=== PATIENT | female | born 1995 | race Caucasian/White ===

== ENCOUNTER 2017-03-01 15:19 | Observation (INO) ==
[2017-03-01] MEDS ORDERED: D5 LR 1,000 ML IV ONE (17:00)
[2017-03-01] MEDS: CLINDAMYCIN 900 MG/NS 900 MG/50 ML IVPB IV SCH (17:14)
[2017-03-01] MEDS ORDERED: ZOFRAN PO PRN (19:31)
[2017-03-01] MEDS: ZOFRAN IV PRN (20:41)
[2017-03-01] MEDS: FERROUS SULFATE PO SCH (22:17)
[2017-03-01] MEDS: D5 LR 1,000 ML IV SCH ×2 (22:18→23:30)
[2017-03-02] MEDS: CLINDAMYCIN 900 MG/NS 900 MG/50 ML IVPB IV SCH ×3 (01:20→16:58)
[2017-03-02] MEDS: D5 LR 1,000 ML IV SCH ×3 (05:42→22:36)
[2017-03-02] MEDS ORDERED: ZOFRAN ODT PO PRN (08:12)
[2017-03-02] MEDS: FERROUS SULFATE PO SCH ×2 (09:03→20:26)
[2017-03-02] MEDS ORDERED: TYLENOL PO ONE (09:29)
[2017-03-02] MEDS: ZOFRAN IV PRN (10:32)
[2017-03-02] MEDS ORDERED: TYLENOL PO PRN (17:39)
[2017-03-02] MEDS ORDERED: PATIENT'S OWN MED PO SCH (21:00)
[2017-03-03] MEDS: CLINDAMYCIN 900 MG/NS 900 MG/50 ML IVPB IV SCH ×2 (00:42→08:15)
[2017-03-03 07:56] VITALS: BP 103/45
[2017-03-03] MEDS: FERROUS SULFATE PO SCH (08:14)
== END 2017-03-03 08:40 | disposition home or self-care (01) ==
LOC: P.NBC 15:19 → P.WC 15:19
PROVIDERS: ADMIT Obstetrics & Gynecology; ATTEND Obstetrics & Gynecology